=== PATIENT | male | born 1995 | race Caucasian/White ===

== ENCOUNTER 2017-07-27 19:49 | Emergency (ER) | payer OTHER ==
[~2017-07-27] VITALS: Ht 180.3 cm; Wt 91.4 kg
[2017-07-27] MEDS ORDERED: SODIUM CHLORIDE FLUSH 10ML SYR IVF ONE (20:30)
[2017-07-27] MEDS ORDERED: PROPOFOL 10 MG/ML, 20ML ONE (20:50)
[2017-07-27 21:17] VITALS: BP 114/56
[2017-07-27] MEDS ORDERED: PROPOFOL 10 MG/ML, 20ML IVPush ONE (21:30)
== END 2017-07-27 22:07 | disposition home or self-care (01) ==
LOC: ED 21:45
DX: S43.005A Unspecified dislocation of left shoulder joint, initial encounter (principal); Y93.61 Activity, american tackle football; Y92.321 Football field as the place of occurrence of the external cause; Y99.8 Other external cause status
CPT/HCPCS: 23655; 73030; 99152; 99285; J2704

== ENCOUNTER 2017-09-22 03:16 | Emergency (ER) | payer OTHER ==
[~2017-09-22] VITALS: Ht 182.9 cm; Wt 90.4 kg
[2017-09-22 03:18] VITALS: BP 136/77
[2017-09-22] MEDS ORDERED: LIDOCAINE-MPF 2% ,5ML ONE ×2 (03:41→03:43)
[2017-09-22] MEDS ORDERED: LIDOCAINE-MPF 1%, 5ML INFIL ONE (04:00)
== END 2017-09-22 04:39 | disposition home or self-care (01) ==
LOC: ED 04:06
DX: S01.112A Laceration without foreign body of left eyelid and periocular area, initial encounter (principal); Y04.8XXA Assault by other bodily force, initial encounter; Y93.89 Activity, other specified; Y92.89 Other specified places as the place of occurrence of the external cause; Y99.8 Other external cause status
CPT/HCPCS: 12052; 99284

== ENCOUNTER 2017-11-03 02:56 | Emergency (ER) | payer OTHER ==
[~2017-11-03] VITALS: Ht 180.3 cm; Wt 88.2 kg
[2017-11-03] MEDS ORDERED: LIDOCAINE-MPF 2% ,5ML ONE (03:05)
[2017-11-03] MEDS ORDERED: PROPOFOL 10 MG/ML, 20ML IVPush ONE (03:30)
[2017-11-03] MEDS ORDERED: LIDOCAINE-MPF 2% ,5ML INFIL ONE (03:30)
[2017-11-03] MEDS ORDERED: PROPOFOL 10 MG/ML, 20ML ONE (03:39)
[2017-11-03 04:43] VITALS: BP 128/72
== END 2017-11-03 04:52 | disposition home or self-care (01) ==
LOC: ED 03:16
DX: S43.085A Other dislocation of left shoulder joint, initial encounter (principal); X58.XXXA Exposure to other specified factors, initial encounter; Y93.89 Activity, other specified; Y99.8 Other external cause status; Y92.009 Unspecified place in unspecified non-institutional (private) residence as the place of occurrence of the external cause
CPT/HCPCS: 23650; 73030; 99152; 99285; J2704; 23575; 99284

== ENCOUNTER 2017-11-12 00:57 | Emergency (ER) | payer OTHER ==
[~2017-11-12] VITALS: Ht 180.3 cm; Wt 88.5 kg
[2017-11-12 01:00] VITALS: BP 123/78
== END 2017-11-12 01:25 | disposition home or self-care (01) ==
LOC: ED 01:10
DX: S43.005A Unspecified dislocation of left shoulder joint, initial encounter (principal); W06.XXXA Fall from bed, initial encounter; Y93.89 Activity, other specified; Y99.8 Other external cause status; Y92.009 Unspecified place in unspecified non-institutional (private) residence as the place of occurrence of the external cause
CPT/HCPCS: 23650; 99284

== ENCOUNTER 2017-12-18 11:13 | Emergency (ER) | payer OTHER ==
[~2017-12-18] VITALS: Ht 180.3 cm; Wt 90.9 kg
[2017-12-18] MEDS ORDERED: ETOMIDATE 20 MG/10 ML ONE (12:18)
[2017-12-18] MEDS ORDERED: ETOMIDATE 20 MG/10 ML IV ONE (12:30)
[2017-12-18] MEDS ORDERED: SODIUM CHLORIDE FLUSH 10ML SYR IVF ONE (12:30)
[2017-12-18 13:57] VITALS: BP 110/65
== END 2017-12-18 14:00 | disposition home or self-care (01) ==
LOC: ED 13:45
DX: S43.005A Unspecified dislocation of left shoulder joint, initial encounter (principal); X50.9XXA Other and unspecified overexertion or strenuous movements or postures, initial encounter; Y93.89 Activity, other specified; Y92.218 Other school as the place of occurrence of the external cause; Y99.8 Other external cause status
CPT/HCPCS: 23650; 99285

== ENCOUNTER 2018-01-25 17:52 | Emergency (ER) | payer OTHER ==
[~2018-01-25] VITALS: Ht 180.3 cm; Wt 89.8 kg
[2018-01-25 17:58] VITALS: BP 139/76
== END 2018-01-25 19:13 | disposition home or self-care (01) ==
LOC: ED 18:30
DX: S43.005A Unspecified dislocation of left shoulder joint, initial encounter (principal); X58.XXXA Exposure to other specified factors, initial encounter; Y93.89 Activity, other specified; Y92.89 Other specified places as the place of occurrence of the external cause; Y99.8 Other external cause status
CPT/HCPCS: 99283